=== PATIENT | female | born 1930 | race Caucasian/White ===

== ENCOUNTER → 2017-02-18 | Outpatient (CLI) | payer OTHER, MEDICARE ==
[~2017-02-18] MED LIST: ASPIRIN EC81 M1 PO; ATORVASTATIN CA10 MG PO; BENTYL 10 MG CA10 MG PO; CALCIUM 600 +1 EAC2 PO; DAILY VITE1 EACH PO; DIOVAN HCT 3201 EACH PO; ELIQUIS2.5 MG PO; KEFLEX250 MG PO; MAGNESIUM400 MG PO; PACERONE 200 M200 M1 PO; XANAX 0.25 MG0.25 MG PO; ZOCOR 20 MG TAB20 M1 PO
== END ==
LOC: HYPER 01-30 10:58
DX: S80.812D Abrasion, left lower leg, subsequent encounter (principal); I87.332 Chronic venous hypertension (idiopathic) with ulcer and inflammation of left lower extremity; L97.821 Non-pressure chronic ulcer of other part of left lower leg limited to breakdown of skin; R60.0 Localized edema; Z90.710 Acquired absence of both cervix and uterus; Z72.89 Other problems related to lifestyle; X58.XXXD Exposure to other specified factors, subsequent encounter

== ENCOUNTER → 2017-02-25 | Outpatient (CLI) | payer OTHER, MEDICARE | LOC: HYPER 07:06 | DX: I87.332 Chronic venous hypertension (idiopathic) with ulcer and inflammation of left lower extremity (principal); L97.821 Non-pressure chronic ulcer of other part of left lower leg limited to breakdown of skin; I10 Essential (primary) hypertension; Z90.710 Acquired absence of both cervix and uterus; Z98.41 Cataract extraction status, right eye; Z98.42 Cataract extraction status, left eye; Z72.89 Other problems related to lifestyle ==

== ENCOUNTER → 2017-05-07 | Outpatient (CLI) | payer OTHER, MEDICARE | LOC: HYPER 03-26 06:55 | DX: I87.332 Chronic venous hypertension (idiopathic) with ulcer and inflammation of left lower extremity (principal); L97.821 Non-pressure chronic ulcer of other part of left lower leg limited to breakdown of skin; R60.0 Localized edema; Z90.710 Acquired absence of both cervix and uterus ==

== ENCOUNTER → 2019-06-08 | Outpatient (CLI) | payer OTHER, MEDICARE | LOC: HYPER 13:03 | DX: I87.332 Chronic venous hypertension (idiopathic) with ulcer and inflammation of left lower extremity (principal); L97.822 Non-pressure chronic ulcer of other part of left lower leg with fat layer exposed; I89.0 Lymphedema, not elsewhere classified; R60.0 Localized edema; B02.9 Zoster without complications; I48.91 Unspecified atrial fibrillation; I73.9 Peripheral vascular disease, unspecified; M48.00 Spinal stenosis, site unspecified; Z79.01 Long term (current) use of anticoagulants; Z90.710 Acquired absence of both cervix and uterus; Z98.41 Cataract extraction status, right eye; Z98.42 Cataract extraction status, left eye ==

== ENCOUNTER → 2019-06-15 | Outpatient (CLI) | payer OTHER, MEDICARE | LOC: HYPER 12:12 | DX: I87.332 Chronic venous hypertension (idiopathic) with ulcer and inflammation of left lower extremity (principal); L97.822 Non-pressure chronic ulcer of other part of left lower leg with fat layer exposed; M48.00 Spinal stenosis, site unspecified; I89.0 Lymphedema, not elsewhere classified; I10 Essential (primary) hypertension; I48.0 Paroxysmal atrial fibrillation; I73.89 Other specified peripheral vascular diseases; Z79.01 Long term (current) use of anticoagulants; Z98.41 Cataract extraction status, right eye; Z98.42 Cataract extraction status, left eye ==

== ENCOUNTER → 2019-06-22 | Outpatient (CLI) | payer OTHER, MEDICARE | LOC: HYPER 09:55 | DX: I87.332 Chronic venous hypertension (idiopathic) with ulcer and inflammation of left lower extremity (principal); L97.822 Non-pressure chronic ulcer of other part of left lower leg with fat layer exposed; I89.0 Lymphedema, not elsewhere classified; I87.2 Venous insufficiency (chronic) (peripheral); I73.89 Other specified peripheral vascular diseases; M48.00 Spinal stenosis, site unspecified; I48.0 Paroxysmal atrial fibrillation; Z79.01 Long term (current) use of anticoagulants; Z98.41 Cataract extraction status, right eye; Z98.42 Cataract extraction status, left eye ==

== ENCOUNTER 2020-06-05 15:38 | Emergency (ER) | payer OTHER, MEDICARE ==
[~2020-06-05] VITALS: Ht 142.2 cm; Wt 43.1 kg
[2020-06-05 16:20] LABS: ABSOLUTE NEUTROPHILS 3.6 thou/uL (1.4-8.2); BASOPHILS 0.7 % (0.0-2.0); EOSINOPHILS 0.8 % (0.0-3.0); HEMOGLOBIN 12.3 gm/dL (12.0-15.0); LYMPHOCYTES 25.2 % (24.0-44.0); MCH 33.6 pg (26.0-34.0); MCHC 34.3 g/dL (28.0-37.0); MCV 98.1 fL (80.0-100.0); MONOCYTES 10.1 % (1.0-8.0); PLATELET COUNT 275 thou/uL (150-400); POLYS 63.2 % (36.0-66.0); RBC 3.67 mil/uL (4.20-5.00); RDW 12.5 % (10.5-14.5); WBC 5.7 thou/uL (4.0-11.0)
[2020-06-05 16:28] LABS: CALCIUM 8.3 mg/dL (8.5-10.1); CREATININE 1.1 mg/dL (0.6-1.0); POTASSIUM 4.4 mmol/L (3.5-5.1)
[2020-06-05 16:34] LABS: ALBUMIN 1.5 g/dL (3.4-5.0); TOTAL BILIRUBIN 0.4 mg/dL (0.2-1.0); TOTAL PROTEIN 5.5 g/dL (6.4-8.2)
[2020-06-05] MEDS ORDERED: FUROSEMIDE 40 M40 MG PO (17:13)
[2020-06-05] MEDS ORDERED: LIPITOR40 MG PO (17:13)
[2020-06-05] MEDS ORDERED: LEVO-T50 MCG PO (17:13)
[2020-06-05] MEDS ORDERED: SPIRONOLACTONE25 MG PO (17:14)
[2020-06-05] MEDS ORDERED: TOPROL XL50 MG PO (17:14)
[2020-06-05] MEDS ORDERED: XARELTO15 MG PO (17:14)
[2020-06-05] MEDS ORDERED: CEPHALEXIN500 MG PO (17:26)
[2020-06-05 18:20] VITALS: BP 96/53
== END 2020-06-05 18:25 | disposition home or self-care (01) ==
LOC: ER 15:38
PROVIDERS: Nurse Practitioner Family
DX: L03.116 Cellulitis of left lower limb (principal); Z88.8 Allergy status to other drugs, medicaments and biological substances; Z88.0 Allergy status to penicillin; Z88.2 Allergy status to sulfonamides; Z79.899 Other long term (current) drug therapy; Z90.49 Acquired absence of other specified parts of digestive tract